=== PATIENT | female | born 1995 | race Caucasian/White ===

== ENCOUNTER 2024-11-24 21:30 | Emergency (ER) | payer OTHER, SELFPAY ==
[2024-11-24 21:40] VITALS: BP 131/95; PULSE 89; RESP 18; TEMP 37.1; O2SAT 97; BMI 27.8
--- NOTE | 2024-11-25 00:41 | ED.GENADULT ---
HPI - General Adult General Chief complaint: Fall Stated complaint: head inj 11/22 Time Seen by Provider: 11/25/24 00:41 History of Present Illness ED Provider: Nicole LEUNG narrative: The patient is a 29-year-old female who is generally in good health. She says that a little over 48 hours prior to coming to the emergency room (on ) she sustained a head injury when a dog she was walking suddenly pulled on the leash. This pulled her off her balance. She fell forward and struck the right side of her head against a post. She had no loss of consciousness of the time but says that she felt that she could not see anything for a few seconds. It took her a while but she was able to get herself up off the floor and take the dog out for a walk. She went to sleep that night and then went to work on Tuesday and Tuesday. It was after she finished work on Tuesday that she came to the emergency room for evaluation of this injury. 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 She says that she does not think she had loss of consciousness at the time of the injury. She seems able to describe the events both immediately before and immediately after the injury. She has had no neck pain. She has a sense of a mild headache which she rates as about a 2/10. This is exacerbated by noise and other stimulating factors. She has had no vomiting. No significant nausea. No visual symptoms. No neck pain. No numbness, tingling, weakness, burning in her extremities. However she feels that her thoughts are a bit slow. Related Data Allergies Allergy/AdvReac Type Severity Reaction Status Date / Time No Known Allergies Allergy Verified 11/24/24 21:44 Review of Systems Review of Systems: Yes all other systems are reviewed and are negative PMFSH Social History Social History Smoked in Last 30 Days: No Use of substances other than those prescribed or required for medical reasons: No Advance Directives: No Advance Directives Information Provided: Yes Do you have a plan to hurt others: No Plan Patient : No Physical Exam ED Vital Signs: Vital Signs - 24 hr 11/24/24 21:40 11/25/24 01:34 11/25/24 01:54 Temperature 98.7 F 98.1 F 98.1 F Pulse Rate 89 69 69 Respiratory Rate 18 20 20 Blood Pressure 131/95 H 114/77 114/77 Pulse Oximetry 97 98 98 Oxygen Delivery Method Room Air Room Air Room Air BMI result Body Mass Index 27.8 Const Other: The patient is a 29-year-old female who was awake and alert. I believe her mental status is largely normal. At some point I felt that she responded slowly to questions but she never seemed frankly confused. HENMT Other: The patient has some ecchymotic skin changes to the right side of the face extending from the temporal area towards the jaw. She is tender in his region. There was no soft tissue swelling or gross deformity. She seems to have some discomfort with opening her mouth but there was no diminished jaw excursion. Face is symmetrical. No hemotympanum. No raccoon eyes. No juarez sign. Tympanic membranes are normal bilaterally. Eyes Other: Pupils are round equal and reactive, extraocular movements are intact, funduscopic exam is normal bilaterally. Neck Other: No posterior midline C-spine tenderness. Good range of motion of the neck without pain. C-spine is clinically clear. Resp Effort & Inspection: normal respiratory effort Auscultation: clear to auscultation bilaterally Cardio Rate: regular rate Rhythm: regular rhythm Heart sounds: S1 normal heart sound present and S2 normal heart sound present Skin Other: There is some yellowish ecchymotic skin changes to the right side of the face extending from the temporal fossa towards the angle of the jaw. No soft tissue swelling. No deformity. Neuro Other: The patient is awake and alert. She seems oriented and appropriate. At times I felt she might has been answering questions slightly slowly but she was never answering inappropriately. She did not seem frankly confused. Cranial nerves 2-12 are intact. She moves her extremities normally and appropriately. There was no pronator drift. Finger-nose is normal bilaterally. Gait is steady. Extrem Other: No sign of injury to the extremities. She is moving all of her extremities normally. Medical Decision Making Medical Decision Making MDM Narrative: The patient is a 29-year-old woman who presents to the emergency room for evaluation of a head injury that occurred approximately 48 hours prior to arrival. She sustained a blow to the right side of her head when a dog pulled her forward and she struck her head against a post. There is bruising to the right side of her head but there was no loss of consciousness. No amnesia. No vomiting. The patient sometimes answers some questions quite slowly but otherwise seems alert, oriented, and appropriate. My overall impression is that, given the lack of loss of consciousness or vomiting that an acutely dangerous intracranial injury is low. I think this person probably does not need a CT scan of the head. Stacy head CT rule does not seem to indicate a CT in this case. Her cervical spine is clinically clear. I think she has some mild concussion symptoms characterized primarily by a slightly slow response to questions. The patient will therefore be given a work note so that she can take the next 4 days off to rest and take it easy. She should use ibuprofen and acetaminophen as needed. She should follow up with the regular doctor or return to the ER if worse. Discharge Plan Discharge Clinical Impression: Head injury, Concussion Patient Disposition: Home, Self-Care Instructions: Concussion (ED), Head Injury (ED) Additional Instructions: At this point I find your physical exam sufficiently reassuring that I do not think you need a CAT scan of your head. However I do think you were showing some signs of a mild concussion and I would recommend resting for the next several days. You may use ibuprofen and acetaminophen as needed for pain. Please rest for the next several days. My hope is that by you will be feeling well enough to return to work. Please contact your regular doctor's office for a follow up appointment. Return to the emergency room at any time if you feel significantly worse. Referrals: Tierra Baig NP [Primary Care Provider] - (concussion) Stand Alone Forms: Work/School Release Interventions: ED Discharge Assessment Last Done: 11/25/24 01:54 Discharge Date/Time: 11/25/24 01:55 Print Language: [place]
[2024-11-25 01:34] VITALS: BP 114/77; PULSE 69; RESP 20; TEMP 36.7; O2SAT 98
[2024-11-25 01:54] VITALS: BP 114/77; PULSE 69; RESP 20; TEMP 36.7; O2SAT 98
== END 2024-11-25 01:55 | disposition home or self-care (01) ==
PROVIDERS: Emergency Provider Emergency Medicine; PCP Nurse Practitioner Primary Care
DX: S09.90XA Unspecified injury of head, initial encounter (principal); W54.1XXA Struck by dog, initial encounter; Y93.K1 Activity, walking an animal; Y92.9 Unspecified place or not applicable; Y99.9 Unspecified external cause status
CPT/HCPCS: 99283; 99284

== ENCOUNTER 2025-05-04 11:24 | Emergency (ER) | payer OTHER, SELFPAY ==
--- NOTE | ~2025-05-04 | XR_ITS ---
CLINICAL HISTORY: pain, swelling 3 view right hand Comparison: None provided Findings: Bones intact. No dislocations. No significant loss of joint space or osteophytes. No erosions. No radiopaque foreign body. IMPRESSION: 1. No acute findings This document has been electronically signed by: Swapnil Rodriguez MD on 05/04/2025 13:01:34
--- NOTE | ~2025-05-04 | XR_ITS ---
CLINICAL HISTORY: pain, swelling 4 view right wrist Comparison: None provided Findings: Bones intact. No dislocations. No significant arthritic change or erosions. No radiopaque foreign body. IMPRESSION: 1. No acute findings This document has been electronically signed by: Swapnil Rodriguez MD on 05/04/2025 13:00:17
[2025-05-04 11:38] VITALS: BP 129/64; PULSE 75; RESP 18; TEMP 36.7; O2SAT 99; BMI 24.7
--- NOTE | 2025-05-04 11:41 | ED_ITS ---
HPI - General Adult General Chief complaint: Extremity Injury, Upper Stated complaint: R hand injury Time Seen by Provider: 05/04/25 12:34 Source: patient and family Mode of arrival: ambulatory Limitations: no limitations History of Present Illness HPI narrative: 29-year-old female presents for evaluation of right hand and wrist pain. Patient states she is going through the [employer] when she was outsi de, tripped over a root and fell forward. Patient landed on her right hand. She did not strike her head. There was no LOC. she applied a homemade splint, Los wrap and has been taking ibuprofen with only minimal relief. She is right- hand dominant. No paresthesias or paralysis. No history of previous injury. She is otherwise feeling well. Related Data Allergies Allergy/AdvReac Type Severity Reaction Status Date / Time No Known Allergies Allergy Verified 05/04/25 11:43 Review of Systems Review of Systems: Yes all other systems are reviewed and are negative Cardiovascular: Cardiovascular: Denies chest pain Musculoskeletal: Musculoskeletal: Denies deformity and Reports joint swelling PMFSH Social History Social History Advance Directives: No Advance Directives Information Provided: No Do you have a plan to hurt others: No Plan Physical Exam ED Vital Signs: Vital Signs - 24 hr 05/04/25 11:38 05/04/25 13:46 Temperature 98.0 F 98.0 F Pulse Rate 75 75 Respiratory Rate 18 18 Blood Pressure 129/64 129/64 Pulse Oximetry 99 99 Oxygen Delivery Method Room Air Room Air BMI result Body Mass Index 24.7 Extrem Other: Soft tissue swelling and ecchymosis over the dorsum of the right hand over the 4th and 5th MCP joints. Tenderness in this region. Capillary refills less than 2 seconds. Diffuse tenderness along the dorsum of the right wrist at the radius and ulna. No crepitus. Pronation is intact but with discomfort. Radial pulses are + 2 equal bilaterally. Course Course Course Narrative: Medical screening exam performed. Please refer to detailed history, exam, evaluation, and management by primary provider. Tripped and fell during training, landed on right hand. Pain at right hand and wrist. Rest, ice, Los wrap and splinting along with ibuprofen without relief. Right hand dominant. No hx previous injury. JS Reevaluation(s) Reevaluation #1: I have had extensive discussion with the patient regarding options for management. Radiologist impression without any acute fracture. Patient is concerned as she would like to continue to perform her duties at the [employer]. This includes vigorous physical activity. Discussed options of not wearing any supportive device, a premade brace which the patient did not feel o ffered much comfort, or custom Orthoglass splint that she can use for comfort as needed. Patient has elected ortho glass and reports that she has improvement in comfort while wearing this. In addition workers comp paperwork completed. Reviewed all discharge instructions. No further questions at this time. Procedures Orthopedic Splinting/Casting Injury #1: Side: right Upper Extremity Injury Location: hand Upper Extremity Immobilizer: ulnar gutter Additional Comments: Ortho glass splint applied. CMS intact. Medical Decision Making Medical Decision Making MDM Narrative: 29-year-old female with trauma to the right hand and wrist. Check x-ray. D eclined any analgesia at this time since she just took ibuprofen prior to arrival. Differential Diagnosis Differential Diagnoses: The differential diagnosis associated with the presentation includes Fracture Dislocation Contusion Sprain Discharge Plan Discharge Clinical Impression: Sprain and strain of wrist Contusion of hand Qualifiers: Encounter type: initial encounter Laterality: right Qualified Code(s): S60.221A - Contusion of right hand, initial encounter Patient Disposition: Home, Self-Care Instructions: Sprain (ED), Contusion in Adults (ED) Additional Instructions: Splint for comfort. Do not get wet. You may wear as tolerated and remove. Rest. Ice. Elevate. Avoid strenuous activity. Orthopedic referral if needed. Follow-up with your primary care provider. Call this week to schedule a follow- up appointment. Return to the emergency department if you have any worsening of symptoms, or any concerns. Get well soon! [place] [facility] [place] [facility] [place]Provider Group] Referral Note: right hand contusion, sprain Interventions: ED Discharge Assessment Last Done: 05/04/25 13:46 Discharge Date/Time: 05/04/25 13:49 Print Language: Yi
[2025-05-04 13:46] VITALS: BP 129/64; PULSE 75; RESP 18; TEMP 36.7; O2SAT 99
--- NOTE | 2025-05-04 13:47 | PC.NURSE ---
the splint was not applied, the provider instead created one because the pr-made did not fit well
== END 2025-05-04 13:49 | disposition home or self-care (01) ==
PROVIDERS: Emergency Provider Emergency Medicine
DX: S60.221A Contusion of right hand, initial encounter (principal); W01.198A Fall on same level from slipping, tripping and stumbling with subsequent striking against other object, initial encounter; Y93.89 Activity, other specified; Y92.89 Other specified places as the place of occurrence of the external cause; Y99.8 Other external cause status
CPT/HCPCS: 29125; 73110; 73130; 99282; 99283

== ENCOUNTER → 2025-05-04 11:42 | Outpatient (BNV) | payer OTHER, SELFPAY | PROVIDERS: Emergency Provider Emergency Medicine; Visit Provider Specialist | DX: S60.221A Contusion of right hand, initial encounter (principal); S63.501A Unspecified sprain of right wrist, initial encounter; W01.0XXA Fall on same level from slipping, tripping and stumbling without subsequent striking against object, initial encounter | CPT/HCPCS: 73110; 73130 ==

== ENCOUNTER 2025-05-27 08:09 | Outpatient (REF) | payer OTHER, SELFPAY ==
--- NOTE | ~2025-05-27 | XR_ITS ---
EXAMINATION: XR HAND 3 OR MORE VIEWS RIGHT HISTORY: M79.641 - Pain in right hand COMPARISON: Comparison is made with the prior examination dated 05/04/2025. FINDINGS: Three views of the right hand are submitted. Osseous mineralization is normal. There is no fracture or dislocation. The joint spaces are preserved. The soft tissues are unremarkable. XR/XR hand RT min 3V IMPRESSION: Unremarkable examination of the right hand. Electronically signed by: Gerard Baer MD 05/27/2025 09:00 AM EDT
== END 2025-05-27 08:10 | disposition home or self-care (01) ==
LOC: HO.HOSX 08:09
DX: S60.211D Contusion of right wrist, subsequent encounter (principal); W01.0XXD Fall on same level from slipping, tripping and stumbling without subsequent striking against object, subsequent encounter
CPT/HCPCS: 73130; 99202

== ENCOUNTER 2025-05-27 08:40 | Outpatient (AMB) | payer OTHER, SELFPAY ==
--- NOTE | 2025-05-27 08:48 | MHC.OFFVIS ---
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 [place] [facility] reporting while she was doing a trail run during a [employer] course, she tripped over a root and fell forward. She applied a homemade splint and an tania wrap. She was placed in an ulnar gutter splint at the ED. Patient reports today the swelling has subsided but she continues having pain on the ulnar aspect of the right hand. She states certain movements worsen her pain. Patient reports she was seen at an Urgent Care approximately 2 weeks after her DOI to have the splint removed, otherwise she was going to get kicked out of the [employer]. She has been icing her it to alleviate the swelling after exercises (push-ups). She denies previous injuries or surgeries to the right hand. 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 Patient [place] [facility] [place] reporting while she was doing a trail run during a [employer] course, she tripped over a root and fell forward. She applied a homemade splint and an tania wrap. She was placed in an ulnar gutter splint at the ED. Patient reports today the swelling has subsided but she continues having pain on the ulnar aspect of the right hand, although the patient does report significant improvement in his pain as well. She states certain movements worsen her pain. Patient reports she was seen at an Urgent Care approximately 2 weeks after her DOI to have the splint removed, otherwise she was going to get kicked out of the [employer]. She has been icing her it to alleviate the swelling after exercises (push-ups). She denies previous injuries or surgeries to the right hand. 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 Neuro: Normal sensation of the tips of all digits of the right hand at this time Vascular: Cap refill brisk Pain: Tenderness to palpation noted just distal to the ulnar styloid of the right wrist No tenderness to palpation of the 1st dorsal compartment, anatomical snuffbox, dorsal or volar aspect of the right wrist Some discomfort with range of motion of the right wrist ROM: Range of motion of the right hand and wrist full and intact Skin: No lacerations or abrasions. General: No ecchymosis, erythema, or evidence of infection. Psych: Appears grossly normal Affect normal Attitude cooperative Results Reviewed Results Reviewed: X-rays obtained in the office today and independently reviewed by me, Celestine Montenegro PA-C, demonstrate no fracture or acute bony abnormality of the right wrist. Assessment & Plan Assessment & Plan (1) Contusion of right wrist: Code(s): S60.211A - Contusion of right wrist, initial encounter Category: Medical Plan 1. Contusion of right wrist Date of injury 05/03/2025 Patient is educated about this condition Patient is educated about the typical recovery course At this time, patient is provided with a Velcro wrist splint to wear when her wrist is particularly bothering her Patient is also referred to occupational therapy for range of motion and strengthening of the right wrist At this time, I feel it is likely that the patient has sustained a significant bony contusion to the right hand and wrist, and the patient is educated that this can take weeks to months to recover from fully I have advised the patient against any overly heavy lifting Patient understands this is amenable to this plan Orders: Orders OT Evaluation and Treatment Today S60.211A - Contusion of right wrist, initial encounter XR hand RT min 3V Today M79.641 - Pain in right hand Coding Level of Care Code New Pt Level 3 (49259) Diagnoses Contusion of right wrist S60.211A
[2025-05-27 08:49] VITALS: BMI 24.6
== END 2025-05-27 09:26 | disposition home or self-care (01) ==
LOC: HO.HOS 08:40
DX: S60.211A Contusion of right wrist, initial encounter (principal)
CPT/HCPCS: 99203

== ENCOUNTER → 2025-05-27 08:42 | Outpatient (BNV) | payer OTHER, SELFPAY | PROVIDERS: Visit Provider Radiology Diagnostic Radiology | DX: M79.641 Pain in right hand (principal) | CPT/HCPCS: 73130 ==